=== PATIENT | female | born 1995 | race Caucasian/White ===

== ENCOUNTER → 2016-08-27 | Outpatient (CLI) | payer MEDICAID ==
--- NOTE | 2016-08-27 17:48 | RADIOLOGY REPORT (SQ) ---
EXAM DESCRIPTION: U/S [id number] TRNABD 1GES W/ODOP COMPLETED DATE/TIME: 08/27/2016 3:15 pm REASON FOR STUDY: ENCOUNTER FOR SUPERVISON OF OTHER NORMAL , FIRST TRIMESTER Z34.[address] FOR SUPRVSN OF NORMAL , FIRST TRIM COMPARISON: None. TECHNIQUE: Transabdominal static and realtime grayscale images acquired of the pelvis. Additional se lected spectral and color Doppler images recorded. All images stored on PACs. bHCG: None available LIMITATIONS: None. FINDINGS: FETUS: Living intrauterine . EGA: 9 weeks 1 day FAITH: 03/31/2017 FHR: 162 beats per minute. SUBCHORIONIC BLEED: No SIZE OF BLEED: Not applicable. UTERUS: No masses. No anomalies. Uterus is 10 x 8 x 7 cm in size. During the study, a [place] contraction came and went CERVICAL LENGTH: 3 cm Closed. RIGHT ADNEXA: Right ovary 5.3 x 4.9 x 4.5 cm in size with a 4 cm cyst, likely the corpus luteum No adnexal free fluid. No adnexal masses. LEFT ADNEXA: Not visualized due to bowel gas FREE FLUID: None. OTHER: No other significant finding. IMPRESSION: LIVING INTRAUTERINE . EGA 9 weeks 1 day Trimester of : First - 0 to 13 weeks. TECHNICAL DOCUMENTATION: JOB ID: [id number] [employer]- All Rights Reserved
== END ==
LOC: RAD 14:24
PROVIDERS: ATTEND Nurse Practitioner Women's Health
DX: Z34.81 Encounter for supervision of other normal pregnancy, first trimester (principal)
CPT/HCPCS: 76801